=== PATIENT | female | born 2000 | race Caucasian/White ===

== ENCOUNTER 2025-08-28 09:49 | Emergency (ER) | payer BC, SELFPAY ==
[2025-08-28 10:11] VITALS: BP 129/77; PULSE 92; RESP 16; TEMP 36.6; O2SAT 100
--- NOTE | 2025-08-28 10:24 | ED_ITS ---
HPI - URI/Sore Throat General Chief Complaint: Upper Respiratory Infection Stated Complaint: Sore Throat Time Seen by Provider: 08/28/25 10:24 History of Present Illness HPI Narrative: 25-year-old female presented for complaint of sore throat, chills and body aches. Onset yesterday. Nasal congestion, drainage, nausea, vomiting, cough or fever. Not taking anything for symptoms. Related Data Allergies Allergy/AdvReac Type Severity Reaction Status Date / Time No Known Allergies Allergy Mild Verified 08/28/25 10:10 Review of Systems Review of Systems: CONSTITUTIONAL: reports chills EYES: Denies visual changes, redness, or discharge. ENT: reports sore throat Denies rhinorrhea, congestion, or otalgia. CARDIOVASCULAR: Denies chest pain, palpitations, or edema. RESPIRATORY: Denies dyspnea. GASTROINTESTINAL: Denies abdominal pain, nausea, vomiting, or diarrhea. SKIN: Denies rash NEUROLOGIC: Denies headache Exam Narrative: GENERAL: well-appearing, no acute distress. EYES: conjunctivae clear ENT: Mucous membranes moist. TMs pearly coronado with normal light reflex bilaterally; no tragal tenderness. Oropharynx not erythematous without lesions. Tonsils enlarged not and without exudate. No drooling, no hoarseness, no trismu s, uvula midline. No tripod positioning, hot potato voice, or soft palate swelling. NECK: Supple. No lymphadenopathy CHEST: Clear to auscultation, breath sounds equal. No respiratory distress, speaks in full sentences. HEART: Regular rate and rhythm. No murmur heard. SKIN: Warm, dry, no rash. NEURO: Alert and oriented x3. Course Course Level of Care: Express Care Visit Vital Signs Vital signs: Vital Signs Temperature 97.9 F 08/28/25 10:11 Pulse Rate 92 08/28/25 10:11 Respiratory Rate 16 08/28/25 10:11 Blood Pressure 129/77 08/28/25 10:11 Pulse Oximetry 100 08/28/25 10:11 Temperature 97.9 F 08/28/25 10:11 Pulse Rate 92 08/28/25 10:11 Respiratory Rate 16 08/28/25 10:11 Blood Pressure 129/77 08/28/25 10:11 Pulse Oximetry 100 08/28/25 10:11 MDM MDM Narrative Medical decision making narrative: Negative strep. Will culture. Discussed physical exam findings. Advised supportive measures and signs/symptoms to go to the ER. Pt is appropriate for outpt treatment and f/u. Differential Diagnosis Differential Diagnosis: Influenza, covid, sinusitis, OM, strep pharyngitis, URI Discharge Plan Discharge Clinical Impression: Pharyngitis Patient Disposition: Home Condition: Stable Instructions: Antibiotic Form, Pharyngitis (ED) Additional Instructions: Rapid strep swab was negative today You will be notified in a few days if the culture comes back positive for strep, and appropriate antibiotics will be called in at that time. if symptoms are due to a viral illness, it is not treated with antibiotics. Viral symptoms can be present for up to 10-14 days. Recommendations: Tylenol every 8 hours as needed for pain/fever Soft foods, cool liquids, warm tea. Gargle with warm saltwater twice a day. Chloraseptic spray and throat lozenges. Rest and stay hydrated. --Follow up with your PCP --Go to the ER immediately if you cannot swallow your saliva, trouble breathing/wheezing, throat swelling, pain is persistent and severe Patient Language: Irish Follow-up/Referrals: PHYSICIAN,ELECTRICAL RESEARCH ENGINEER [Primary Care Provider, Internal Medicine]
[2025-08-28 10:30] LABS: EDSTREPNEGPOS1 Negative (Negative)
== END 2025-08-28 10:39 | disposition home or self-care (01) ==
PROVIDERS: Emergency Provider Nurse Practitioner Family
DX: J02.9 Acute pharyngitis, unspecified (principal)
CPT/HCPCS: 87081; 87880; 99203; G0463